=== PATIENT | female | born 1990 | race Hispanic/Latino ===

== ENCOUNTER 2018-11-26 11:24 | Emergency (ER) | payer OTHER ==
[~2018-11-26] VITALS: Ht 142.2 cm; Wt 60.0 kg
[~2018-11-26 11:24] MED LIST: CLEOCIN300 MG PO; FERROUS SULF325 M1 PO; FLUOXETINE20 MG PO; FLUZONE SPLT1 M1 IM; KENALOG15 GM/TUBE EX; METHIMAZOLE10 MG OR; METHIMAZOLE5 MG OR; METROGEL VAG0.75 % VA; MIRALAX3350 NF PO; MONISTAT 34 % VA; OBTREX DHA PO; PRENATA3 OR; RANITIDINE150 M1 OR; TUBERSOL5 MG/0.1 M ID
[2018-11-26] MEDS ORDERED: ZITHROMAX500 MG PO ×2 (12:36→13:15)
[2018-11-26 12:45] VITALS: BP 121/74
== END 2018-11-26 12:45 | disposition home or self-care (01) ==
LOC: ED 11:24
DX: J06.9 Acute upper respiratory infection, unspecified (principal); R50.9 Fever, unspecified; R05 Cough

== ENCOUNTER 2019-09-19 20:50 | Emergency (ER) | payer SELFPAY ==
[~2019-09-19 20:50] MED LIST changes: +ZITHROMAX500 MG PO
[2019-09-19 22:06] LABS: HEMATOCRIT 41.4 % (37.0-47.0); HEMOGLOBIN 13.8 g/dl (12.0-16.0); IMMATURE GRANULOCYTES 0.3 % (0.0-5.0); MEAN CELL VOLUME 84.1 fL CALC (80.0-100.0); MEAN CORPUSCULAR HGB CONC 33.3 g/dL CAL (32.0-36.0); NEUT# 4.93 thou/uL (2.00-7.15); RED BLOOD COUNT 4.92 mill/uL (4.20-5.60); RED CELL DISTRI WIDTH 12.7 % (11.5-15.5)
[2019-09-19 22:07] LABS: URINE BILIRUBIN - DIPSTICK NEGATIVE (NEGATIVE); URINE BLOOD DIPSTICK NEGATIVE (NEGATIVE); URINE COLOR YELLOW; URINE GLUCOSE - DIPSTICK NEGATIVE (NEGATIVE); URINE KETONE 40 mg/dL (NEGATIVE); URINE LEUK ESTERASE NEGATIVE (NEGATIVE); URINE NITRITE - DIPSTICK NEGATIVE (Negative); URINE PROTEIN - DIPSTICK NEGATIVE (NEG-TRACE); URINE SPECIFIC GRAVITY >=1.030; URINE UROBILINOGEN - DIPSTICK 0.2 E.U./dL (0.2)
[2019-09-19 22:17] LABS: HCG SERUM/URINE (NEG/POS) NEGATIVE (NEGATIVE)
[2019-09-19 22:24] LABS: ALBUMIN 4.6 g/dL (3.2-5.0); BILIRUBIN, TOTAL 0.5 mg/dL (0.0-1.4); BUN 10 mg/dL (7-17); BUN/CREATININE RATIO 13 (12-20 (CALC)); CARBON DIOXIDE 25 mmol/l (22-30); CHLORIDE 98 mmol/l (95-108); CREATININE 0.8 mg/dL (0.5-1.0); GFR > 60 ML/MIN (>=60 (CALC)); GFR FOR AFR.AMER. > 60 ML/MIN (>=60 (CALC)); SGOT/AST 42 u/l (14-36); SODIUM 135 mmol/l (137-146); TOTAL PROTEIN 7.8 g/dL (6.3-8.2)
[2019-09-19 22:30] LABS: ALKALINE PHOSPHATASE 132 u/l (38-126); ANION GAP 15 (6-22 (CALC)); POTASSIUM 3.1 mmol/l (3.5-5.1)
[2019-09-19 23:48] VITALS: BP 114/72
--- NOTE | 2019-09-23 14:49 | NUR ---
CALLED PT WITH NO ANSWER, LEFT MESSAGE. PT CALLED BACK SHORTLY AFTER AND WAS GIVEN RESULTS FOR POSITIVE COVID 19.
== END 2019-09-20 00:06 | disposition home or self-care (01) | DRG 179 ==
LOC: ED 20:50
PROVIDERS: Family Medicine
DX: U07.1 COVID-19 (principal)